=== PATIENT | male | born 1980 | race Caucasian/White ===

== ENCOUNTER → 2018-04-14 | Outpatient (REF) | payer OTHER | LOC: M LAB REF 13:09 | PROVIDERS: ATTEND Internal Medicine Nephrology | DX: R80.9 Proteinuria, unspecified (principal) ==

== ENCOUNTER → 2018-04-28 | Outpatient (CLI) | payer OTHER ==
--- NOTE | 2018-04-28 12:20 | REP ---
RENAL AND BLADDER ULTRASOUND: Real-time sonographic evaluation of the kidneys performed. The kidneys are normal in size and echotexture, right kidney measuring 10.7 x 4.8 x 5.0 cm and left kidney 1.3 x 4.7 x 5.9 cm. There is no hydronephrosis, renal mass or nephrolithiasis. The urinary bladder is mildly distended with no evidence of mass or calculus. IMPRESSION: Essentially negative renal and bladder ultrasound. Electronically Signed by Bruce Jaeger MD 04/28/2018 12:25 P
== END ==
LOC: M RAD 11:16 → EDUNIT# 11:30
PROVIDERS: ATTEND Internal Medicine Nephrology
DX: R80.9 Proteinuria, unspecified (principal)